=== PATIENT | male | born 1980 | race Caucasian/White ===

== ENCOUNTER → 2018-04-16 | Outpatient (CLI) | payer OTHER ==
[2018-04-16 14:08] LABS: PROLACTIN 5.2 NG/ML (2.1-17.7)
[2018-04-16 14:09] LABS: FOLLICLE STIMULATING HORMONE 7.9 mIU/mL (1.4-18.1); LUTEINIZING HORMONE 6.8 mIU/mL (1.5-9.3)
[2018-04-16 14:09] LABS: ESTRADIOL 34.6 PG/ML (<39.8)
[2018-04-18 00:06] LABS: SEX HORMONE BINDING GLOBULIN 24.1 nmol/L (16.5-55.9); TESTOSTERONE FREE (DIRECT) 6.8 pg/mL (8.7-25.1)
== END ==
LOC: M LAB 12:34
DX: N46.029 Azoospermia due to other extratesticular causes (principal)
CPT/HCPCS: 83001

== ENCOUNTER → 2018-04-16 | Outpatient (REF) | payer OTHER ==
[2018-04-16 14:08] LABS: SEMEN APPEARANCE OPAQUE (OPAQUE); SEMEN VISCOSITY LIQUID (LIQUID); SEMEN WBC <=1 M/ml (<=1 M/ml); SEMEN pH 8.5 (7.0-8.0)
[2018-04-16 14:09] LABS: #IMMOTILE SPERM COUNTED 2; #MOTILE SPERM COUNTED 1; % MOTILITY 33 (> 40%); SPERM CONCENTRATION 0 M/ml (> 15 M/ml); TOTAL # SPERM COUNTED 3 M/ml
== END ==
LOC: M SMT 13:28
DX: N46.029 Azoospermia due to other extratesticular causes (principal)

== ENCOUNTER → 2021-10-02 | Outpatient (REF) | LOC: M PLAIMG 14:05 | PROVIDERS: ATTEND Internal Medicine | DX: M19.90 Unspecified osteoarthritis, unspecified site (principal) ==

== ENCOUNTER → 2022-03-03 | Outpatient (REF) | payer OTHER | LOC: M LAB REF 11:18 | PROVIDERS: ATTEND Physician Assistant Medical | DX: J06.9 Acute upper respiratory infection, unspecified (principal) ==

== ENCOUNTER → 2022-03-04 | Outpatient (CLI) | payer OTHER ==
[2022-03-04 18:40] LABS: ALBUMIN 3.8 GM/DL (3.2-5.2); BLOOD UREA NITROGEN 14 MG/DL (7-18); CALCIUM LEVEL 8.5 MG/DL (8.5-10.1); CARBON DIOXIDE LEVEL 30 MEQ/L (21-32); CHLORIDE LEVEL 103 MEQ/L (98-107); CREATININE FOR GFR 1.09 MG/DL (0.70-1.30); GLOMERULAR FILTRATION RATE > 60.0 (>60); GLUCOSE, FASTING 95 MG/DL (70-100); PHOSPHORUS LEVEL 3.4 MG/DL (2.5-4.9); POTASSIUM SERUM 3.6 MEQ/L (3.5-5.1); SODIUM LEVEL 136 MEQ/L (136-145)
== END ==
LOC: M WUC 13:38
PROVIDERS: ATTEND Physician Assistant
DX: J06.9 Acute upper respiratory infection, unspecified (principal); U07.1 COVID-19